=== PATIENT | male | born 1970 | race Caucasian/White ===

== ENCOUNTER 2018-12-18 12:09 | Day surgery (SDC) | payer BC ==
--- NOTE | 2018-12-18 10:42 | HP ---
DATE OF SURGERY: 12/18/2018 HISTORY OF PRESENT ILLNESS: The patient is a 48 year-old with nodule right leg increasing in size over the past year and desires excision. He has enlarging nodule right leg. Question adenofibroma or other etiology PAST MEDICAL HISTORY: Hypertension, diabetes, hyperlipidemia. PAST SURGICAL HISTORY: He denies any surgery on this part of his leg. MEDICATIONS: Amlodipine, atorvastatin, glipizide, lisinopril, hydrochlorothiazide, Metformin, Jardiance. ALLERGIES: NKDA. FAMILY HISTORY: Negative in regards to this problem. SOCIAL HISTORY: Denies smoking. REVIEW OF SYSTEMS: Fourteen systems reviewed per admission assessment. No chest pain or palpitations other systems negative or noncontributory as above and per preadmission questionnaire. PHYSICAL EXAMINATION: GENERAL: No acute distress. HEENT: Sclerae nonicteric. NECK: No JVD. CHEST: Equal excursion, nonlabored breathing. CVS: Regular rate and rhythm. ABDOMEN: Soft. EXTREMITIES: The right leg raised lesion of unclear etiology. NEURO: Alert, oriented, moving extremities symmetrically. IMPRESSION: Enlarging nodule right leg unclear etiology, needs excision. Risks and benefits explained in detail including but not limited to bleeding or infection, risk of wound dehiscence possibly requiring packing. Possibly should there be malignancy, involved margins possibly requiring wider excision or other studies or procedures down the road. He understands and agrees to the planned procedure, will proceed with excisional biopsy of enlarging nodule right leg as an outpatient.
[~2018-12-18 12:09] MED LIST: Lactated Ringers 1,000 ML IV ONE; Lactated Ringers 1,000 ML IV SCH; Sensorcaine 0.25% 10 ML ONE
[2018-12-18] MEDS ORDERED: Versed 2 MG/2 ML Injection ONE (14:30)
[2018-12-18] MEDS ORDERED: SUBLIMAZE 100 MCG/2 ML ONE (14:31)
[2018-12-18] MEDS ORDERED: DIPRIVAN 200 MG/20 ML IV ONE (14:31)
[2018-12-18 15:32] VITALS: BP 135/72; PULSE 62; O2SAT 97
--- NOTE | 2018-12-19 09:55 | OP ---
SURGERY DATE/TIME: 12/18/2018 1429 PREOPERATIVE DIAGNOSIS: Enlarging persistent right leg nodule of uncertain behavior. POSTOPERATIVE DIAGNOSIS: Enlarging persistent right leg nodule of uncertain behavior, path pending. PROCEDURE: Excisional biopsy of right leg nodule (approximately 2 cm with margins) with intermediate closure local advancement flaps. SURGEON: Dr. Lico Álvarez. ANESTHESIA: General. ESTIMATED BLOOD LOSS: Minimal. INDICATIONS: As noted above. Risks and benefits explained in detail and not limited to and consent obtained. DESCRIPTION OF PROCEDURE AND FINDINGS: The patient is taken to the operating room. General anesthesia introduced. After official time out and no disagreement with planned procedure, right leg prepped and draped in usual sterile fashion. 0.25% Marcaine local was available per the OR staff in field pattern around the area. A spindle-shaped excision pattern accomplished extending out to normal appearing skin this resulted in a 2 cm specimen with margins with about a 4.5 cm long spindle-shaped excision pattern dissecting down to normal appearing subcutaneous tissue and fascia. The specimen is passed off for pathology. The flaps were undermined on either side, then advanced back towards the midline with interrupted 3-0 Vicryl. Skin closed with 4-0 Vicryl, some interrupted 3-0 Prolene with interrupted vertical mattress fashion used to reinforce the area as the area was a little bit snug. The patient tolerated the procedure well. There were no immediate complications. Sterile dressing applied. There were no immediate complications. Findings discussed with the family out in the waiting area.
== END 2018-12-18 15:42 | disposition home or self-care (01) ==
LOC: SDC 12:09
PROVIDERS: ATTEND Surgery
DX: D48.5 Neoplasm of uncertain behavior of skin (principal); E11.9 Type 2 diabetes mellitus without complications; I10 Essential (primary) hypertension; E78.5 Hyperlipidemia, unspecified; Z79.899 Other long term (current) drug therapy
CPT/HCPCS: 82962; J2250; J2704; J3010

== ENCOUNTER 2023-05-14 12:18 | Emergency (ER) | payer BC ==
[2023-05-14 12:29] VITALS: TEMP 98.3
--- NOTE | 2023-05-14 12:51 | ERPHSYRPT ---
- History of Present Illness Time Seen by Provider: 05/14/23 12:25 Source: patient Exam Limitations: no limitations Patient Subjective Stated Complaint: C/O Chest pain that started at 0200 today. Patient states he woke up and then noticed the pain. Describes it as a "burning" and an "inability to get comfortable." Triage Nursing Assessment: Patient brought down to the ER in a W/C by [facility] staff. He is alert and oriented. No SOB. No cough. Skin tone normal. MOORE WNL. No edema. Physician History: 52 years old male with history of hypertension, diabetes mellitus, GERD presented in the ER from urgent care with complaints of epigastric pain sudden onset around 2 AM waking him up from sleep, moderate to severe intensity, dull aching to burning nature, radiating through to the back, associated with nausea and 1 episode of nonprojectile, nonbilious vomiting without hematemesis. Denies any difficulty breathing palpitations. No cough congestion reported. No history of coronary artery disease. Patient reports his pain is improved and currently 12/10 intensity in the epigastric area and does not want any pain medications. Allergies/Adverse Reactions: No Known Drug Allergies Allergy (Verified 05/14/23 12:20) Home Medications: Amlodipine Besylate 5 mg [Norvasc 5 mg] 1 tab PO DAILY 05/14/23 [History] Atorvastatin Calcium [Lipitor 20MG Tablet] 1 tab PO DAILY 05/14/23 [History] Glipizide 10 mg [Glucotrol 10 MG] 1 tab PO HS 05/14/23 [History] Lisinopril 20 mg [Zestril 20 MG] 1 tab PO DAILY 05/14/23 [History] Lisinopril/Hydrochlorothiazide [Lisinopril-Hctz 20-25 mg Tab] 1 tab PO HS 05/14/23 [History] Semaglutide [Ozempic] 0.5 mg SQ WEEKLY 05/14/23 [History] Hx Tetanus, Diphtheria Vaccination/Date Given: Yes Hx Influenza Vaccination/Date Given: No Hx Pneumococcal Vaccination/Date Given: No Immunizations Up to Date: Yes Travel Risk - International Travel Have you traveled outside of the country in past 3 weeks: No - Coronavirus Screening Are you exhibiting any of the following symptoms?: No Close contact with a COVID-19 positive Pt in past 14-21 Days: No - Vaccine Status Have you recieved a Covid-19 vaccination: Yes 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 - Review of Systems Constitutional: No Symptoms Eyes: No Symptoms Ears, Nose, & Throat: No Symptoms Respiratory: No Symptoms Cardiac: No Symptoms Abdominal/Gastrointestinal: Abdominal Pain Genitourinary Symptoms: No Symptoms Musculoskeletal: No Symptoms Neurological: No Symptoms Psychological: No Symptoms Endocrine: No Symptoms Hematologic/Lymphatic: No Symptoms Immunological/Allergic: No Symptoms - Past Medical History Pertinent Past Medical History: Yes Neurological History: No Pertinent History ENT History: No Pertinent History Cardiac History: High Cholesterol, Hypertension Respiratory History: No Pertinent History Endocrine Medical History: Diabetes Type II Musculoskeletal History: No Pertinent History GI Medical History: No Pertinent History History: No Pertinent History Psycho-Social History: No Pertinent History Male Reproductive Disorders: No Pertinent History - Past Surgical History Past Surgical History: No Other Surgical History: "growth removal" on right leg - Social History Smoking Status: Former smoker Exposure to second hand smoke: No Drug Use: none Patient Lives Alone: No - Nursing Vital Signs Nursing Vital Signs: Initial Vital Signs Pulse Rate 97 H 05/14/23 12:18 Respiratory Rate 15 05/14/23 12:18 Blood Pressure 137/102 05/14/23 12:18 Pain Scale Pain Intensity 4 - Physical Exam General Appearance: no apparent distress, alert Eye Exam: PERRL/EOMI Ears, Nose, Throat Exam: normal ENT inspection, TMs normal, pharynx normal Neck Exam: normal inspection, non-tender, supple, full range of motion Respiratory Exam: normal breath sounds, lungs clear Cardiovascular Exam: regular rate/rhythm, normal heart sounds Gastrointestinal/Abdomen Exam: soft, normal bowel sounds, No tenderness Extremity Exam: normal inspection, normal range of motion Neurologic Exam: alert, oriented x 3, cooperative Skin Exam: normal color SpO2 Interpretation: normal SpO2: 97 O2 Delivery: Room Air - Course EKG Interpreted by Me: RATE (95), Sinus Rhythm, NORMAL AXIS, NORMAL INTERVALS, Q-wave Ordered Tests: Active Orders 24 hr Category Date Time Status EKG-ER Only STAT Care 05/14/23 12:37 Active IV Insertion STAT Care 05/14/23 12:37 Active NPO (ED) STAT Care 05/14/23 12:37 Active ABDOMEN AND PELVIS W CONTRAST [CT] Stat Exams 05/14/23 14:56 Completed CHEST 1 VIEW (PORTABLE) Stat Exams 05/14/23 12:37 Taken CHEST WITH CONTRAST [CT] Stat Exams 05/14/23 14:55 Completed AMYLASE Stat Lab 05/14/23 12:48 Completed CBC W DIFF Stat Lab 05/14/23 12:48 Completed CMP Stat Lab 05/14/23 12:48 Completed D-DIMER QUANTITATIVE Stat Lab 05/14/23 14:13 Completed LIPASE Stat Lab 05/14/23 12:48 Completed Lactic Acid Stat Lab 05/14/23 12:37 Completed TROPONIN Q4H Lab 05/14/23 12:48 Completed TROPONIN Q4H Lab 05/14/23 17:05 Completed TROPONIN Q4H Lab 05/14/23 20:45 Ordered UA W/RFX UR CULTURE Stat Lab 05/14/23 14:08 Completed Medication Summary Discontinued Medications Generic Name Dose Route Start Last Admin Trade Name Freq PRN Reason Stop Dose Admin Al Hydrox/Mg Hydrox/Simethicone Confirm 05/14/23 15:06 Mag Hydrox/Al Hydrox/Simeth 30 Ml Udcup Administered 05/14/23 15:07 Dose 30 ml .ROUTE .STK-MED ONE Sodium Chloride 1,000 mls @ 999 mls/hr 05/14/23 12:37 05/14/23 14:11 Sodium Chloride 0.9% 1000 Ml IV 05/14/23 13:37 Infused .Q1H1M STA Infusion Sodium Chloride Confirm 05/14/23 13:03 Sodium Chloride 0.9% 1000 Ml Administered 05/14/23 13:04 Dose 1,000 mls @ ud .ROUTE .STK-MED ONE Lidocaine HCl Confirm 05/14/23 15:05 Lidocaine Hcl 2% Viscous 15 Ml Udcup Administered 05/14/23 15:06 Dose 15 ml .ROUTE .STK-MED ONE Magnesium Hydroxide 45 ml 05/14/23 14:56 05/14/23 15:12 Mag Hydrx/Alum Hyd/Simeth/Lido 45 Ml Bottle PO 05/14/23 14:57 45 ml STAT ONE Administration Ondansetron HCl 4 mg 05/14/23 12:37 05/14/23 13:07 Ondansetron Hcl 4 Mg/2 Ml Vial IV 05/14/23 12:38 4 mg STAT ONE Administration Ondansetron HCl Confirm 05/14/23 13:03 Ondansetron Hcl 4 Mg/2 Ml Vial Administered 05/14/23 13:04 Dose 4 mg .ROUTE .STK-MED ONE Pantoprazole Sodium 40 mg 05/14/23 12:51 05/14/23 13:08 Pantoprazole 40 Mg Vial IV 05/14/23 12:52 40 mg STAT ONE Administration Pantoprazole Sodium Confirm 05/14/23 13:03 Pantoprazole 40 Mg Vial Administered 05/14/23 13:04 Dose 40 mg IV .STK-MED ONE Lab/Rad Data: Laboratory Result Diagrams 05/14/23 12:48 05/14/23 12:48 Laboratory Results 05/14/23 05/14/23 05/14/23 Range/Units 17:05 14:13 14:08 WBC (4.0-10.5) x10^3/uL RBC (4.1-5.6) x10^6/uL Hgb (12.5-18.0) g/dL Hct (42-50) % MCV (78-100) fL MCH (26-32) pg MCHC (32-36) g/dL RDW (11.5-14.0) % Plt Count (150-450) x10^3/uL MPV (7.5-11.0) fL Gran % (36.0-66.0) % Immature Gran % (Auto) (0.00-0.4) % Nucleat RBC Rel Count (0.00-0.1) % Eos # (Auto) (0-0.5) x10^3/uL Immature Gran # (Auto) (0.00-0.03) x10^3u/L Absolute Lymphs (auto) (1.0-4.6) x10^3/uL Absolute Monos (auto) (0.0-1.3) x10^3/uL Absolute Nucleated RBC (0.00-0.01) x10^3u/L Lymphocytes % (24.0-44.0) % Monocytes % (0.0-12.0) % Eosinophils % (0.00-5.0) % Basophils % (0.0-0.4) % Absolute Granulocytes (1.4-6.9) x10^3/uL Basophils # (0-0.4) x10^3/uL D-Dimer 0.72 H* (0.0-0.50) mg/L Sodium (137-145) mmol/L Potassium (3.5-5.1) mmol/L Chloride (98-107) mmol/L Carbon Dioxide (22-30) mmol/L Anion Gap (5-15) MEQ/L BUN (9-20) mg/dL Creatinine (0.66-1.25) mg/dL Estimated GFR ML/MIN Glucose (74-106) mg/dL Lactic Acid (0.4-2.0) Calcium (8.4-10.2) mg/dL Total Bilirubin (0.2-1.3) mg/dL AST (17-59) U/L ALT (0-50) U/L Alkaline Phosphatase (38-126) U/L Troponin I < 0.012 (0.000-0.034) ng/mL Serum Total Protein (6.3-8.2) g/dL Albumin (3.5-5.0) g/dL Amylase (30-110) U/L Lipase (23-300) U/L Urine Color Yellow (Yellow) Urine Appearance Clear (Clear) Urine pH 6.0 (4.6-8.0) Ur Specific Cuney 1.015 (1.005-1.030) Urine Protein Negative (Negative) Urine Glucose (UA) Negative (Negative) mg/dL Urine Ketones 15 A (Negative) Urine Blood Negative (Negative) Urine Nitrite Negative (Negative) Urine Bilirubin Negative (Negative) Urine Urobilinogen 0.2 (0.2) mg/dL Ur Leukocyte Esterase Negative (Negative) U Hyaline Cast (Auto) NONE SEEN (0-2) /LPF Urine Microscopic RBC 0-2 (0-5) /HPF Urine Microscopic WBC 0-2 (0-5) /HPF Ur Epithelial Cells None Seen (None Seen) /HPF Urine Bacteria None Seen (None Seen) /HPF Urine Culture Reflexed NO (NO) Slides for Path Review 05/14/23 05/14/23 05/14/23 Range/Units 12:48 12:48 12:48 WBC 9.9 (4.0-10.5) x10^3/uL RBC 4.65 (4.1-5.6) x10^6/uL Hgb 13.2 (12.5-18.0) g/dL Hct 40.2 L (42-50) % MCV 86.5 (78-100) fL MCH 28.4 (26-32) pg MCHC 32.8 (32-36) g/dL RDW 13.2 (11.5-14.0) % Plt Count 313 (150-450) x10^3/uL MPV 9.9 (7.5-11.0) fL Gran % 90.3 H (36.0-66.0) % Immature Gran % (Auto) 0.2 (0.00-0.4) % Nucleat RBC Rel Count 0.0 (0.00-0.1) % Eos # (Auto) 0.01 (0-0.5) x10^3/uL Immature Gran # (Auto) 0.02 (0.00-0.03) x10^3u/L Absolute Lymphs (auto) 0.42 L (1.0-4.6) x10^3/uL Absolute Monos (auto) 0.50 (0.0-1.3) x10^3/uL Absolute Nucleated RBC 0.00 (0.00-0.01) x10^3u/L Lymphocytes % 4.2 L (24.0-44.0) % Monocytes % 5.0 (0.0-12.0) % Eosinophils % 0.1 (0.00-5.0) % Basophils % 0.2 (0.0-0.4) % Absolute Granulocytes 8.94 H (1.4-6.9) x10^3/uL Basophils # 0.02 (0-0.4) x10^3/uL D-Dimer (0.0-0.50) mg/L Sodium 139 (137-145) mmol/L Potassium 4.2 (3.5-5.1) mmol/L Chloride 103 (98-107) mmol/L Carbon Dioxide 27 (22-30) mmol/L Anion Gap 12.6 (5-15) MEQ/L BUN 36 H (9-20) mg/dL Creatinine 1.51 H (0.66-1.25) mg/dL Estimated GFR 54.9 ML/MIN Glucose 119 H (74-106) mg/dL Lactic Acid (0.4-2.0) Calcium 10.0 (8.4-10.2) mg/dL Total Bilirubin 0.70 (0.2-1.3) mg/dL AST 25 (17-59) U/L ALT 24 (0-50) U/L Alkaline Phosphatase 89 (38-126) U/L Troponin I < 0.012 (0.000-0.034) ng/mL Serum Total Protein 8.4 H (6.3-8.2) g/dL Albumin 4.9 (3.5-5.0) g/dL Amylase 83 (30-110) U/L Lipase 88 (23-300) U/L Urine Color (Yellow) Urine Appearance (Clear) Urine pH (4.6-8.0) Ur Specific Cuney (1.005-1.030) Urine Protein (Negative) Urine Glucose (UA) (Negative) mg/dL Urine Ketones (Negative) Urine Blood (Negative) Urine Nitrite (Negative) Urine Bilirubin (Negative) Urine Urobilinogen (0.2) mg/dL Ur Leukocyte Esterase (Negative) U Hyaline Cast (Auto) (0-2) /LPF Urine Microscopic RBC (0-5) /HPF Urine Microscopic WBC (0-5) /HPF Ur Epithelial Cells (None Seen) /HPF Urine Bacteria (None Seen) /HPF Urine Culture Reflexed (NO) Slides for Path Review YES 05/14/23 Range/Units 12:37 WBC (4.0-10.5) x10^3/uL RBC (4.1-5.6) x10^6/uL Hgb (12.5-18.0) g/dL Hct (42-50) % MCV (78-100) fL MCH (26-32) pg MCHC (32-36) g/dL RDW (11.5-14.0) % Plt Count (150-450) x10^3/uL MPV (7.5-11.0) fL Gran % (36.0-66.0) % Immature Gran % (Auto) (0.00-0.4) % Nucleat RBC Rel Count (0.00-0.1) % Eos # (Auto) (0-0.5) x10^3/uL Immature Gran # (Auto) (0.00-0.03) x10^3u/L Absolute Lymphs (auto) (1.0-4.6) x10^3/uL Absolute Monos (auto) (0.0-1.3) x10^3/uL Absolute Nucleated RBC (0.00-0.01) x10^3u/L Lymphocytes % (24.0-44.0) % Monocytes % (0.0-12.0) % Eosinophils % (0.00-5.0) % Basophils % (0.0-0.4) % Absolute Granulocytes (1.4-6.9) x10^3/uL Basophils # (0-0.4) x10^3/uL D-Dimer (0.0-0.50) mg/L Sodium (137-145) mmol/L Potassium (3.5-5.1) mmol/L Chloride (98-107) mmol/L Carbon Dioxide (22-30) mmol/L Anion Gap (5-15) MEQ/L BUN (9-20) mg/dL Creatinine (0.66-1.25) mg/dL Estimated GFR ML/MIN Glucose (74-106) mg/dL Lactic Acid 1.4 (0.4-2.0) Calcium (8.4-10.2) mg/dL Total Bilirubin (0.2-1.3) mg/dL AST (17-59) U/L ALT (0-50) U/L Alkaline Phosphatase (38-126) U/L Troponin I (0.000-0.034) ng/mL Serum Total Protein (6.3-8.2) g/dL Albumin (3.5-5.0) g/dL Amylase (30-110) U/L Lipase (23-300) U/L Urine Color (Yellow) Urine Appearance (Clear) Urine pH (4.6-8.0) Ur Specific Cuney (1.005-1.030) Urine Protein (Negative) Urine Glucose (UA) (Negative) mg/dL Urine Ketones (Negative) Urine Blood (Negative) Urine Nitrite (Negative) Urine Bilirubin (Negative) Urine Urobilinogen (0.2) mg/dL Ur Leukocyte Esterase (Negative) U Hyaline Cast (Auto) (0-2) /LPF Urine Microscopic RBC (0-5) /HPF Urine Microscopic WBC (0-5) /HPF Ur Epithelial Cells (None Seen) /HPF Urine Bacteria (None Seen) /HPF Urine Culture Reflexed (NO) Slides for Path Review - Progress Progress: improved, pain not gone completely, re-examined Progress Note: 05/14/23 17:48 51 years old is evaluated in the ER for epigastric pain since 2 AM with associated an episode of nonprojectile nonbilious vomiting. Patient pain is improved and has minimal discomfort. No peritoneal signs. Pain/tenderness is between epigastrium and umbilicus. Broad workup is done which showed normal white count, fairly unremarkable chemistries with a stable CKD creatinine of 1.5. EKG is normal sinus rhythm with no acute ischemic changes, negative troponins x 2. Elevated D-dimers with no obvious pulmonary embolism and patient is on room air with saturation in upper 90s with no tachypnea or tachycardia. CT abdomen pelvis showed small hepatic cyst which I have discussed with patient and need for further evaluation with ultrasound outpatient. I do not think patient's symptoms are secondary to the cyst. Otherwise CT abdomen pelvis with contrast is fairly unremarkable with no acute pancreatitis or cholecystitis. I have also given him Protonix and GI cocktail, on reevaluation his symptoms are better. Patient reported later that he does take Aleve regularly. It is possible patient has some element of gastritis, recommended taking Tylenol and not any NSAIDs, also will switch Prilosec to Protonix and few days worth of Ca rafate and outpatient primary care follow-up for further evaluation and possible need for endoscopy. At this point I do not think patient needs further evaluation and his pain does not seem cardiac in nature, is being discharged with instructions to return for any worsening which patient sounds und erstanding. Counseled pt/family regarding: lab results, diagnosis, need for follow-up, rad results Medical Desision Making - Diagnostic Testing Diagnostic test were ordered, analyzed, and reviewed by me: Yes Radiological Interpretation: Reviewed by me, Teleradiologist Report - Risk of complications The pt has a mod risk of morbidity or mortality based on: Need for prescription drug management - Departure Departure Disposition: Home Clinical Impression: Epigastric pain, Gastritis, Hepatic cyst Condition: Stable Critical Care Time: No Referrals: BOYD SNOW MD [Primary Care Provider] - Follow up with PCP 2 days Instructions: Angina (DC), Gastritis (DC) Additional Instructions: Do not take Aleve. Take Tylenol as needed. Follow-up with primary care physician for reevaluation. Return to ER for worsening pain in the epigastric area or if having chest pain palpitations or shortness of breath etc. Prescriptions: Sucralfate 1 gm [Carafate 1 GM] 1 g PO ACHS #20 tablet PANTOPRAZOLE 40 mg Tablet [Protonix 40MG Tablet] 40 mg PO QAM #30 tab
[2023-05-14 12:53] LABS: Absolute Neutrophil Ct (ANC) 8.94 x10^3/uL (1.4-6.9); BASOPHIL % 0.2 % (0.0-0.4); Basophil (Absolute #) 0.02 x10^3/uL (0-0.4); Eosinophil % 0.1 % (0.00-5.0); Eosinophil (Absolute #) 0.01 x10^3/uL (0-0.5); Hematocrit 40.2 % (42-50); Hemoglobin 13.2 g/dL (12.5-18.0); IMMATURE GRAN # 0.02 x10^3u/L (0.00-0.03); IMMATURE GRAN % 0.2 % (0.00-0.4); Lymphocyte (Absolute #) 0.42 x10^3/uL (1.0-4.6); Lymphocytes % 4.2 % (24.0-44.0); Mean Cell Volume 86.5 fL (78-100); Mean Corpuscular Hemoglobin 28.4 pg (26-32); Mean Corpuscular Hgb Concent. 32.8 g/dL (32-36); Mean Platelet Volume 9.9 fL (7.5-11.0); Neutrophil % 90.3 % (36.0-66.0); Platelet Count 313 x10^3/uL (150-450); Red Blood Count 4.65 x10^6/uL (4.1-5.6); Red Cell Distribution Width 13.2 % (11.5-14.0); White Blood Count 9.9 x10^3/uL (4.0-10.5)
[2023-05-14] MEDS ORDERED: PROTONIX 40 MG IV IV ONE (13:03)
[2023-05-14] MEDS ORDERED: Sodium Chloride 0.9% 1000 ML 1,000 ML ONE (13:03)
[2023-05-14] MEDS ORDERED: Zofran 4 MG/2 ML VIAL ONE (13:03)
[2023-05-14] MEDS: Sodium Chloride 0.9% 1000 ML 1,000 ML IV STA (13:05)
[2023-05-14] MEDS: Zofran 4 MG/2 ML VIAL IV ONE (13:07)
[2023-05-14] MEDS: PROTONIX 40 MG IV IV ONE (13:08)
[2023-05-14 13:11] LABS: ALBUMIN 4.9 g/dL (3.5-5.0); ANION GAP 12.6 MEQ/L (5-15); BILIRUBIN,TOTAL 0.7 mg/dL (0.2-1.3); Creatinine 1 1.51 mg/dL (0.66-1.25); EST GLOMERULAR FILTRATION RATE 54.9 ML/MIN; Potassium 4.2 mmol/L (3.5-5.1); Total Protein 8.4 g/dL (6.3-8.2)
[2023-05-14 14:15] LABS: Slide Review 1 YES
[2023-05-14 14:36] LABS: Appearance Clear (Clear); Bacteria None Seen /HPF (None Seen); Bilirubin Negative (Negative); Blood Negative (Negative); Epithelial Cells None Seen /HPF (None Seen); Glucose, Urine Negative (Negative); Hyaline Casts NONE SEEN /LPF (0-2); Ketones 15 (Negative); Leukocyte Esterase Negative (Negative); Nitrite Negative (Negative); Protein,Urine Dip Negative (Negative); RBC 0-2 /HPF (0-5); Specific Gravity 1.015 (1.005-1.030); Urobilinogen 0.2 mg/dL (0.2); WBC 0-2 /HPF (0-5)
[2023-05-14 14:37] LABS: ADD URINE CULTURE? NO (NO)
[2023-05-14] MEDS ORDERED: XYLOCAINE VISCOUS 2% 15 ML CUP ONE (15:05)
[2023-05-14] MEDS ORDERED: MAALOX ES 30 ML UNIT DOSE ONE (15:06)
[2023-05-14] MEDS: GI COCKTAIL 45 ML (Maalox/Lidocaine) PO ONE (15:12)
--- NOTE | 2023-05-14 16:59 | XRAY ---
CLINICAL HISTORY: EPIGASTRIC PAIN TECHNIQUE: A CT scan of the abdomen and pelvis was performed with 80 cc Isovue 370 mg IV contrast. Delayed images were also obtained. Coronal and sagittal reconstructive images were also obtained. COMPARISON: None. FINDINGS: Basal thoracic cuts: bilateral basal atelectatic bands. Abdomen: The liver is within the upper limit size measuring 17 cm. A well-defined right hepatic lobe hypodense non-enhancing lesion is seen measuring 19 x 14 mm, possibly a hepatic cyst. The portal vein, intrahepatic biliary radicals, and the bile ducts are normal. The spleen, pancreas, and adrenal glands are unremarkable. The kidneys are unremarkable. They are normal in size and shape. No calculi or hydronephrosis. Smudging of the perirenal fat planes bilaterally is seen. The gallbladder is normal. No pericholecystic collection or radio-dense calculi in the gall bladder. There is no evidence of significant mesenteric or retroperitoneal lymph node enlargement. Stomach and bowel: Colonic diverticulosis is more evident in the sigmoid colon with no evident diverticulitis. The appendix is unremarkable. Pelvis: The urinary bladder is unremarkable. The prostate is unremarkable. The pelvic vasculature is unremarkable. No evidence of pelvic lymphadenopathy. Bilateral small inguinal hernias with omental fat within. Skeletal system: No suspicious bony lesion detected. Degenerative changes are seen in the spine. IMPRESSION: 1. Upper limit size of the liver. Clinical correlation is suggested. 2. A well-defined right hepatic lobe hypodense non enhancing lesion is seen measuring 19 x 14 mm, possibly a simple hepatic cyst. For ultrasound correlation. 3. Smudging of the perirenal fat planes bilaterally is seen. Possibly non-specific/inflammatory for clinical correlation. 4. Colonic diverticulosis more evident in the sigmoid colon with no evident diverticulitis. 5. Bilateral small inguinal hernias with omental fat within. Electronically Signed by: Quyen Gracia MD. (05/14/2023 16:55:01 EST)
--- NOTE | 2023-05-14 17:09 | XRAY ---
CLINICAL HISTORY: pain, PE? TECHNIQUE: Contiguous axial CT images of the chest were acquired without and with administration of intravenous contrast. Coronal and sagittal reconstructions were obtained. COMPARISON: None. FINDINGS: No definite evidence of any definite filling defect in the pulmonary arteries on either side up to their second-order branches. Some hypodensities are seen in bilateral lower lobe segmental branches, likely artefactual for clinical correlation. No consolidation, mass, pleural effusion or pneumothorax. Linear and ground-glass opacities are seen in the medial segment of the right middle lobe and basal segments of both lower lobes, which may represent parenchymal fibrosis and/or subsegmental atelectasis. Heart size is normal, and there is no pericardial effusion. No pathologically enlarged mediastinal, hilar, or axillary lymph node was identified. There is no definite mass lesion in the chest wall. Mild degenerative osseous changes are seen in the thoracic spine The scanned upper abdomen shows a 1.7 cm well-circumscribed hypodense lesion at the right liver lobe, likely a simple cyst. IMPRESSION: Hypodense foci within the bilateral lower segmental branches of the pulmonary artery are likely artifactual, for clinical correlation and D-dimers value. No definite filling defect could be seen in the main pulmonary artery up to their second-order branches. No consolidation, mass, pleural effusion or pneumothorax. Electronically Signed by: Quyen Gracia MD. (05/14/2023 17:05:07 EST)
[2023-05-14 17:50] VITALS: O2SAT 97
[2023-05-14 17:51] VITALS: PULSE 92; RESP 15
[2023-05-14 18:11] VITALS: BP 129/79
--- NOTE | 2023-05-14 20:41 | XRAY ---
Indication: Epigastric pain. Comparison: None Portable chest demonstrates minimal bibasilar subsegmental atelectasis/scarring. Remaining heart, lungs, and bony thorax unremarkable.
== END 2023-05-14 18:12 | disposition home or self-care (01) ==
LOC: ED 12:18
DX: R10.13 Epigastric pain (principal); K29.70 Gastritis, unspecified, without bleeding; K76.89 Other specified diseases of liver; R11.10 Vomiting, unspecified; E78.5 Hyperlipidemia, unspecified; I10 Essential (primary) hypertension; E11.9 Type 2 diabetes mellitus without complications; Z79.84 Long term (current) use of oral hypoglycemic drugs; Z79.85 Long-term (current) use of injectable non-insulin antidiabetic drugs; Z79.899 Other long term (current) drug therapy
CPT/HCPCS: 36000; 36415; 71045; 71260; 74177; 80053; 81001; 82150; 83605; 83690; 84484; 85025; 85379; 93005; 96374; 99284; J2405; A9270-GY